=== PATIENT | male | born 1980 | race Caucasian/White ===

== ENCOUNTER 2018-11-08 01:00 | Inpatient (IN) | payer MEDICAID ==
[2018-11-08] MEDS ORDERED: SOD CHLORIDE 0.9% 1,000 ML IV (01:30)
[2018-11-08 01:53] LABS: ADD MAN DIFF? NO
[2018-11-08 01:56] LABS: WHITE BLOOD COUNT 3.3 10^3/ul (4.8-10.8)
[2018-11-08 01:56] LABS: BASOPHILS % 0.3 % (0.0-2.0); HEMATOCRIT 45.2 % (42.0-52.0); HEMOGLOBIN 14.9 g/dl (14.0-18.0); LYMPHOCYTES # 0.7 10^3/ul (0.8-2.9); LYMPHOCYTES % 22.7 % (15.0-51.0); MEAN CORPUSCULAR HEMOGLOBIN 28.4 pg (29.0-33.0); MEAN CORPUSCULAR VOLUME 86.3 fl (82.0-101.0); MEAN PLATELET VOLUME 10.8 fl (7.4-10.4); MONOCYTE # 0.3 10^3/ul (0.3-0.9); MONOCYTES % 10.4 % (0.0-11.0); NEUTROPHIL # 2.2 10^3/ul (1.6-7.5); PLATELET COUNT 190 10^3/UL (140-415); RED BLOOD COUNT 5.24 10^6/ul (4.70-6.10); RED CELL DISTRIBUTION WIDTH 13.7 % (11.5-14.5)
[2018-11-08] MEDS: SODIUM CHLORIDE 0.9% 1L BAG IV* (02:00)
[2018-11-08] MEDS: PIPER-TAZO 3.375 GM IV (PMX) 100 ML IVPB (02:07)
[2018-11-08] MEDS: ACETAMINOPHEN 325 MG TAB PO ×2 (02:07→19:34)
[2018-11-08 02:13] LABS: ALANINE AMINOTRANSFERASE 26 IU/L (13-69); ALBUMIN 4.2 g/dl (3.3-4.9); ALBUMIN/GLOBULIN RATIO 1.23; ALKALINE PHOSPHATASE 56 IU/L (42-121); ANION GAP 9 (5-13); ASPARTATE AMINO TRANSFERASE 37 IU/L (15-46); BILIRUBIN,INDIRECT 0.2 mg/dl (0-1.1); BILIRUBIN,TOTAL 0.2 mg/dl (0.2-1.3); BLOOD UREA NITROGEN 14 mg/dl (7-20); CALCIUM 8.8 mg/dl (8.4-10.2); CARBON DIOXIDE 29 mmol/L (21-31); CHLORIDE 98 mmol/L (97-110); CREATININE 0.87 mg/dl (0.61-1.24); Estimated GFR > 60 mL/min (>60); GLUCOSE 100 mg/dl (70-220); POTASSIUM 3.8 mmol/L (3.5-5.1); SODIUM 136 mmol/L (135-144); TOTAL PROTEIN 7.6 g/dl (6.1-8.1)
[2018-11-08 02:15] LABS: PROTIME 12.3 Sec (11.9-14.9)
[2018-11-08 02:16] LABS: PARTIAL THROMBOPLASTIN TIME 34.6 Sec (23.0-35.0)
[2018-11-08 02:19] LABS: CREATINE KINASE 209 IU/L (23-200)
[2018-11-08 02:24] LABS: TROPONIN-I < 0.012 ng/ml (0.000-0.120)
[2018-11-08 02:33] LABS: LACTIC ACID 2.3 mmol/L (0.5-2.0)
[2018-11-08] MEDS: VANCOMYCIN 1 GM (PMX) 250 ML IVPB (02:57)
[2018-11-08] MEDS: SOD CHLORIDE 0.9% IV (03:02)
[2018-11-08] MEDS ORDERED: ONDANSETRON 4 MG INJ IV (04:00)
[2018-11-08] MEDS ORDERED: ALBUTEROL/IPRATROPIUM (NEB) 3 ML AMP HHN (04:00)
[2018-11-08] MEDS ORDERED: NACL 0.9% 3 ML SYG IV (04:00)
[2018-11-08 04:46] LABS: ADD UMIC NO; UR ASCORBIC ACID NEGATIVE (NEGATIVE); UR BILIRUBIN (Dip) NEGATIVE (NEGATIVE); UR BLOOD (Dip) NEGATIVE (NEGATIVE); UR CLARITY CLEAR (CLEAR); UR COLOR STRAW (YELLOW); UR GLUCOSE (Dip) NEGATIVE (NEGATIVE); UR KETONES (Dip) NEGATIVE (NEGATIVE); UR LEUKOCYTE ESTERASE (Dip) NEGATIVE Leu/ul (NEGATIVE); UR NITRITE (Dip) NEGATIVE (NEGATIVE); UR SPECIFIC GRAVITY (Dip) 1.009 (1.003-1.030); UR TOTAL PROTEIN (Dip) NEGATIVE (NEGATIVE); UR UROBILINOGEN (Dip) NEGATIVE (NEGATIVE)
[2018-11-08] MEDS: SOD CHLORIDE 0.9% 1,000 ML IV ×3 (05:00→16:57)
[2018-11-08] MEDS: IBUPROFEN 600 MG TAB PO (05:37)
[2018-11-08 07:32] LABS: LACTIC ACID 0.9 mmol/L (0.5-2.0)
[2018-11-08] MEDS ORDERED: AZITHROMYCIN 500MG/NS (PMX) 250 ML IVPB (09:00)
[2018-11-08] MEDS: CEFTRIAXONE 1 GM/50 ML (PMX) 50 ML IVPB ×2 (10:28→21:13)
[2018-11-08] MEDS: AZITHROMYCIN 500MG/NS (PMX) 250 ML IVPB (16:52)
[2018-11-08] MEDS: LORAZEPAM 0.5 MG TAB PO (21:13)
[2018-11-09] MEDS: HYDROCODONE/APAP (5/325) TAB PO (00:43)
[2018-11-09] MEDS: LORAZEPAM 0.5 MG TAB PO ×2 (04:02→09:00)
[2018-11-09 06:24] LABS: ADD MAN DIFF? NO
[2018-11-09 06:33] LABS: ABNORMAL IP MESSAGE 1; BASOPHILS % 0.5 % (0.0-2.0); HEMATOCRIT 44.6 % (42.0-52.0); HEMOGLOBIN 14.5 g/dl (14.0-18.0); LYMPHOCYTES # 0.9 10^3/ul (0.8-2.9); LYMPHOCYTES % 43.5 % (15.0-51.0); MEAN CORPUSCULAR HEMOGLOBIN 28.2 pg (29.0-33.0); MEAN CORPUSCULAR HGB CONC 32.5 g/dl (32.0-37.0); MEAN CORPUSCULAR VOLUME 86.6 fl (82.0-101.0); MEAN PLATELET VOLUME 11.2 fl (7.4-10.4); MONOCYTE # 0.3 10^3/ul (0.3-0.9); MONOCYTES % 16.5 % (0.0-11.0); NEUTROPHIL # 0.8 10^3/ul (1.6-7.5); NEUTROPHILS % 39.5 % (39.0-77.0); PLATELET COUNT 156 10^3/UL (140-415); POSITIVE DIFF @See below; RED BLOOD COUNT 5.15 10^6/ul (4.70-6.10); RED CELL DISTRIBUTION WIDTH 13.9 % (11.5-14.5)
[2018-11-09 06:44] LABS: HEMOGLOBIN A1C 5.3 % (0-5.9)
[2018-11-09 07:27] LABS: CARBON DIOXIDE 27 mmol/L (21-31); CHLORIDE 103 mmol/L (97-110); POTASSIUM 4.1 mmol/L (3.5-5.1); SODIUM 139 mmol/L (135-144)
[2018-11-09 07:28] LABS: ALANINE AMINOTRANSFERASE 19 IU/L (13-69); ALBUMIN 3.7 g/dl (3.3-4.9); ALBUMIN/GLOBULIN RATIO 1.15; ALKALINE PHOSPHATASE 50 IU/L (42-121); ANION GAP 9 (5-13); ASPARTATE AMINO TRANSFERASE 35 IU/L (15-46); BILIRUBIN,INDIRECT 0.1 mg/dl (0-1.1); BILIRUBIN,TOTAL 0.1 mg/dl (0.2-1.3); BLOOD UREA NITROGEN 10 mg/dl (7-20); CALCIUM 8.4 mg/dl (8.4-10.2); CHOL/HDL RATIO 3.9 RATIO; CHOLESTEROL 107 mg/dl (100-200); CREATININE 0.71 mg/dl (0.61-1.24); Estimated GFR > 60 mL/min (>60); GLUCOSE 78 mg/dl (70-220); HDL CHOLESTEROL 27 mg/dl (27-67); LDL CHOLESTEROL,CALCULATED 68 mg/dl; TOTAL PROTEIN 6.9 g/dl (6.1-8.1); TRIGLYCERIDES 60 mg/dl (0-149)
[2018-11-09] MEDS: CEFTRIAXONE 1 GM/50 ML (PMX) 50 ML IVPB (09:00)
[2018-11-09] MEDS: ACETAMINOPHEN 325 MG TAB PO (09:00)
[2018-11-09] MEDS: SOD CHLORIDE 0.9% 1,000 ML IV ×2 (09:34→15:04)
[2018-11-09] MEDS ORDERED: ACETAMINOPHEN 325 MG TAB PO (12:30)
[2018-11-09] MEDS ORDERED: GUAIFENESIN/DM 5ML CUP PO (12:30)
[2018-11-09] MEDS: AZITHROMYCIN 500MG/NS (PMX) 250 ML IVPB (17:00)
[2018-11-10] MEDS ORDERED: ENOXAPARIN 40 MG/0.4 ML SYG SC (09:00)
== END 2018-11-09 18:59 | disposition home or self-care (01) | DRG 864 ==
LOC: E/R 01:00 → TEL 03:04
PROVIDERS: Internal Medicine
DX: R50.9 Fever, unspecified (principal); F15.93 Other stimulant use, unspecified with withdrawal; B34.9 Viral infection, unspecified; F17.210 Nicotine dependence, cigarettes, uncomplicated
CPT/HCPCS: 36415; 71045; 74176; 80053; 80061; 81003; 82550; 83036; 83605; 84443; 84484; 85025; 85610; 85730; 87040; 87086; 87400; 93005; 96365; 96375; 99291-25

== ENCOUNTER 2018-11-11 18:23 | Emergency (ER) | payer MEDICAID ==
[2018-11-11] MEDS: SOD CHLORIDE 0.9% 1,000 ML IV (19:55)
[2018-11-11 20:12] LABS: ADD MAN DIFF? NO
[2018-11-11 20:14] LABS: WHITE BLOOD COUNT 3.7 10^3/ul (4.8-10.8)
[2018-11-11 20:14] LABS: BASOPHILS % 0.5 % (0.0-2.0); EOSINOPHILS # 0.1 10^3/ul (0.0-0.5); EOSINOPHILS % 1.6 % (0.0-7.0); HEMATOCRIT 46.3 % (42.0-52.0); HEMOGLOBIN 15.3 g/dl (14.0-18.0); LYMPHOCYTES # 1.1 10^3/ul (0.8-2.9); LYMPHOCYTES % 29.9 % (15.0-51.0); MEAN CORPUSCULAR HEMOGLOBIN 28.4 pg (29.0-33.0); MEAN CORPUSCULAR VOLUME 86.1 fl (82.0-101.0); MONOCYTE # 0.5 10^3/ul (0.3-0.9); MONOCYTES % 14.2 % (0.0-11.0); NEUTROPHILS % 53.5 % (39.0-77.0); PLATELET COUNT 229 10^3/UL (140-415); RED BLOOD COUNT 5.38 10^6/ul (4.70-6.10); RED CELL DISTRIBUTION WIDTH 13.7 % (11.5-14.5)
[2018-11-11 20:24] LABS: ADD UMIC NO; UR ASCORBIC ACID NEGATIVE (NEGATIVE); UR BILIRUBIN (Dip) NEGATIVE (NEGATIVE); UR BLOOD (Dip) NEGATIVE (NEGATIVE); UR CLARITY CLEAR (CLEAR); UR COLOR YELLOW (YELLOW); UR GLUCOSE (Dip) NEGATIVE (NEGATIVE); UR KETONES (Dip) NEGATIVE (NEGATIVE); UR LEUKOCYTE ESTERASE (Dip) NEGATIVE Leu/ul (NEGATIVE); UR NITRITE (Dip) NEGATIVE (NEGATIVE); UR SPECIFIC GRAVITY (Dip) 1.015 (1.003-1.030); UR TOTAL PROTEIN (Dip) NEGATIVE (NEGATIVE); UR UROBILINOGEN (Dip) NEGATIVE (NEGATIVE)
[2018-11-11 20:54] LABS: ALANINE AMINOTRANSFERASE 25 IU/L (13-69); ALBUMIN 4.2 g/dl (3.3-4.9); ALBUMIN/GLOBULIN RATIO 1.07; ALKALINE PHOSPHATASE 61 IU/L (42-121); ANION GAP 11 (5-13); ASPARTATE AMINO TRANSFERASE 44 IU/L (15-46); BILIRUBIN,INDIRECT 0.2 mg/dl (0-1.1); BILIRUBIN,TOTAL 0.2 mg/dl (0.2-1.3); BLOOD UREA NITROGEN 17 mg/dl (7-20); CALCIUM 9.1 mg/dl (8.4-10.2); CARBON DIOXIDE 32 mmol/L (21-31); CHLORIDE 97 mmol/L (97-110); Estimated GFR > 60 mL/min (>60); GLUCOSE 93 mg/dl (70-220); LIPASE 114 U/L (23-300); SODIUM 140 mmol/L (135-144); TOTAL PROTEIN 8.1 g/dl (6.1-8.1)
[2018-11-11 20:54] LABS: MONOTEST Negative (NEG)
[2018-11-11 21:01] LABS: TROPONIN-I < 0.012 ng/ml (0.000-0.120)
[2018-11-11 21:34] LABS: HIV 1&2 ANTIBODY NEGATIVE (NEGATIVE)
== END 2018-11-11 22:15 | disposition home or self-care (01) ==
LOC: FTE 18:23
DX: B34.9 Viral infection, unspecified (principal); R07.9 Chest pain, unspecified; R53.1 Weakness; F17.210 Nicotine dependence, cigarettes, uncomplicated
CPT/HCPCS: 36415; 80053; 81003; 83605; 83690; 84484; 85025; 86308; 86703; 93005; 99284-25

== ENCOUNTER 2018-12-05 20:33 | Emergency (ER) | payer MEDICAID ==
[2018-12-06] MEDS: ONDANSETRON (ODT) 4 MG TAB ODT (00:53)
[2018-12-06] MEDS: FAMOTIDINE 20 MG TAB PO (00:55)
[2018-12-06] MEDS: ASPIRIN 325 MG TAB PO (00:55)
[2018-12-06] MEDS: LORAZEPAM 1 MG TAB PO (00:55)
== END 2018-12-06 01:26 | disposition home or self-care (01) ==
LOC: FTE 12-06 01:26
DX: F41.9 Anxiety disorder, unspecified (principal); Z87.891 Personal history of nicotine dependence
CPT/HCPCS: 93005; 99283-25

== ENCOUNTER 2019-01-28 06:07 | Emergency (ER) | payer MEDICAID ==
[2019-01-28] MEDS: LORAZEPAM 1 MG TAB PO (07:13)
== END 2019-01-28 09:15 | disposition home or self-care (01) ==
LOC: E/R 06:07
DX: F41.9 Anxiety disorder, unspecified (principal); F17.210 Nicotine dependence, cigarettes, uncomplicated; R40.2142 Coma scale, eyes open, spontaneous, at arrival to emergency department; R40.2362 Coma scale, best motor response, obeys commands, at arrival to emergency department; R40.2252 Coma scale, best verbal response, oriented, at arrival to emergency department
CPT/HCPCS: 99283; Z7502

== ENCOUNTER 2019-02-01 00:14 | Emergency (ER) | payer MEDICAID ==
[2019-02-01] MEDS: DIPHENHYDRAMINE 50 MG INJ IM (00:31)
[2019-02-01] MEDS: LORAZEPAM 2 MG INJ IM (00:31)
[2019-02-01] MEDS: HALOPERIDOL 5 MG INJ IM (00:31)
[2019-02-01] MEDS ORDERED: HALOPERIDOL 5 MG INJ (00:34)
[2019-02-01] MEDS ORDERED: LORAZEPAM 2 MG INJ (00:35)
[2019-02-01 00:59] LABS: ADD MAN DIFF? NO
[2019-02-01 01:00] LABS: BASOPHILS % 0.3 % (0.0-2.0); EOSINOPHILS # 0.1 10^3/ul (0.0-0.5); EOSINOPHILS % 0.6 % (0.0-7.0); HEMATOCRIT 41.5 % (42.0-52.0); HEMOGLOBIN 13.9 g/dl (14.0-18.0); LYMPHOCYTES # 1.4 10^3/ul (0.8-2.9); LYMPHOCYTES % 12.8 % (15.0-51.0); MEAN CORPUSCULAR HEMOGLOBIN 28.7 pg (29.0-33.0); MEAN CORPUSCULAR HGB CONC 33.5 g/dl (32.0-37.0); MEAN CORPUSCULAR VOLUME 85.6 fl (82.0-101.0); MEAN PLATELET VOLUME 10.2 fl (7.4-10.4); MONOCYTE # 0.9 10^3/ul (0.3-0.9); MONOCYTES % 8.5 % (0.0-11.0); NEUTROPHIL # 8.2 10^3/ul (1.6-7.5); NEUTROPHILS % 77.4 % (39.0-77.0); PLATELET COUNT 360 10^3/UL (140-415); RED BLOOD COUNT 4.85 10^6/ul (4.70-6.10); RED CELL DISTRIBUTION WIDTH 13.2 % (11.5-14.5)
[2019-02-01 01:00] LABS: WHITE BLOOD COUNT 10.5 10^3/ul (4.8-10.8)
[2019-02-01 01:16] LABS: BARBITURATES Negative (NEGATIVE); BENZODIAZEPINES Negative (NEGATIVE); CANNABINOIDS Negative (NEGATIVE); COCAINE Negative (NEGATIVE); OPIATES Negative (NEGATIVE)
[2019-02-01 01:20] LABS: ALANINE AMINOTRANSFERASE 30 IU/L (13-69); ALBUMIN 4.5 g/dl (3.3-4.9); ALBUMIN/GLOBULIN RATIO 1.32; ALKALINE PHOSPHATASE 52 IU/L (42-121); ANION GAP 11 (5-13); ASPARTATE AMINO TRANSFERASE 37 IU/L (15-46); BILIRUBIN,INDIRECT 0.5 mg/dl (0-1.1); BILIRUBIN,TOTAL 0.5 mg/dl (0.2-1.3); BLOOD UREA NITROGEN 15 mg/dl (7-20); CALCIUM 10.1 mg/dl (8.4-10.2); CARBON DIOXIDE 27 mmol/L (21-31); CHLORIDE 104 mmol/L (97-110); CREATININE 1.13 mg/dl (0.61-1.24); Estimated GFR > 60 mL/min (>60); GLUCOSE 103 mg/dl (70-220); POTASSIUM 3.8 mmol/L (3.5-5.1); SODIUM 142 mmol/L (135-144); TOTAL PROTEIN 7.9 g/dl (6.1-8.1)
[2019-02-01 01:25] LABS: ACETAMINOPHEN < 10.0 ug/ml (10.0-30.0); ETHANOL < 10.0 mg/dl (0-0); SALICYLATE < 1.0 mg/dl (5.0-30.0)
[2019-02-01 01:26] LABS: AMPHETAMINE/METHAMPHETAMINE POSITIVE (NEGATIVE)
[2019-02-01 02:21] LABS: ADD UMIC NO; UR ASCORBIC ACID 20 mg/dL (NEGATIVE); UR BILIRUBIN (Dip) NEGATIVE (NEGATIVE); UR BLOOD (Dip) NEGATIVE (NEGATIVE); UR CLARITY CLEAR (CLEAR); UR COLOR STRAW (YELLOW); UR GLUCOSE (Dip) NEGATIVE (NEGATIVE); UR KETONES (Dip) NEGATIVE (NEGATIVE); UR LEUKOCYTE ESTERASE (Dip) NEGATIVE Leu/ul (NEGATIVE); UR NITRITE (Dip) NEGATIVE (NEGATIVE); UR SPECIFIC GRAVITY (Dip) 1.011 (1.003-1.030); UR TOTAL PROTEIN (Dip) NEGATIVE (NEGATIVE); UR UROBILINOGEN (Dip) NEGATIVE (NEGATIVE)
== END 2019-02-01 12:18 | disposition home or self-care (01) ==
LOC: E/R 00:14
DX: F15.10 Other stimulant abuse, uncomplicated (principal); R20.2 Paresthesia of skin; D64.9 Anemia, unspecified; F17.210 Nicotine dependence, cigarettes, uncomplicated; F23 Brief psychotic disorder
CPT/HCPCS: 36415; 80053; 80307; 81003; 85025; 96372; 99284-25

== ENCOUNTER 2019-02-08 13:03 | Emergency (ER) | payer MEDICAID ==
[2019-02-08 14:11] LABS: ADD MAN DIFF? NO
[2019-02-08] MEDS: SOD CHLORIDE 0.9% 1,000 ML IV (14:11)
[2019-02-08 14:14] LABS: WHITE BLOOD COUNT 6.1 10^3/ul (4.8-10.8)
[2019-02-08 14:14] LABS: BASOPHILS % 0.3 % (0.0-2.0); EOSINOPHILS # 0.1 10^3/ul (0.0-0.5); EOSINOPHILS % 1.5 % (0.0-7.0); HEMATOCRIT 38.8 % (42.0-52.0); HEMOGLOBIN 12.8 g/dl (14.0-18.0); LYMPHOCYTES % 16.7 % (15.0-51.0); MEAN CORPUSCULAR HEMOGLOBIN 28.1 pg (29.0-33.0); MEAN CORPUSCULAR VOLUME 85.3 fl (82.0-101.0); MEAN PLATELET VOLUME 10.2 fl (7.4-10.4); MONOCYTE # 0.5 10^3/ul (0.3-0.9); MONOCYTES % 8.7 % (0.0-11.0); NEUTROPHIL # 4.4 10^3/ul (1.6-7.5); NEUTROPHILS % 72.5 % (39.0-77.0); PLATELET COUNT 284 10^3/UL (140-415); RED BLOOD COUNT 4.55 10^6/ul (4.70-6.10); RED CELL DISTRIBUTION WIDTH 13.2 % (11.5-14.5)
[2019-02-08 14:21] LABS: ADD UMIC YES; UR ASCORBIC ACID NEGATIVE (NEGATIVE); UR BILIRUBIN (Dip) NEGATIVE (NEGATIVE); UR BLOOD (Dip) 1+ mg/dL (NEGATIVE); UR CLARITY CLEAR (CLEAR); UR COLOR COLORLESS (YELLOW); UR GLUCOSE (Dip) NEGATIVE (NEGATIVE); UR KETONES (Dip) NEGATIVE (NEGATIVE); UR LEUKOCYTE ESTERASE (Dip) NEGATIVE Leu/ul (NEGATIVE); UR NITRITE (Dip) NEGATIVE (NEGATIVE); UR RBC 0 /HPF (0-5); UR SPECIFIC GRAVITY (Dip) 1.004 (1.003-1.030); UR TOTAL PROTEIN (Dip) NEGATIVE (NEGATIVE); UR UROBILINOGEN (Dip) NEGATIVE (NEGATIVE); UR WBC 0 /HPF (0-5)
[2019-02-08 14:31] LABS: ALANINE AMINOTRANSFERASE 32 IU/L (13-69); ALBUMIN/GLOBULIN RATIO 1.29; ALKALINE PHOSPHATASE 49 IU/L (42-121); ANION GAP 7 (5-13); ASPARTATE AMINO TRANSFERASE 36 IU/L (15-46); BILIRUBIN,INDIRECT 0.5 mg/dl (0-1.1); BILIRUBIN,TOTAL 0.5 mg/dl (0.2-1.3); BLOOD UREA NITROGEN 17 mg/dl (7-20); CALCIUM 9.8 mg/dl (8.4-10.2); CARBON DIOXIDE 27 mmol/L (21-31); CHLORIDE 104 mmol/L (97-110); CREATININE 0.94 mg/dl (0.61-1.24); Estimated GFR > 60 mL/min (>60); GLUCOSE 93 mg/dl (70-220); SODIUM 138 mmol/L (135-144); TOTAL PROTEIN 7.1 g/dl (6.1-8.1)
[2019-02-08 14:44] LABS: BARBITURATES Negative (NEGATIVE); BENZODIAZEPINES Negative (NEGATIVE); CANNABINOIDS Negative (NEGATIVE); COCAINE Negative (NEGATIVE); OPIATES Negative (NEGATIVE)
[2019-02-08 14:47] LABS: ETHANOL < 10.0 mg/dl (0-0); SALICYLATE < 1.0 mg/dl (5.0-30.0)
[2019-02-08 14:55] LABS: AMPHETAMINE/METHAMPHETAMINE POSITIVE (NEGATIVE)
[2019-02-08] MEDS: MAGNESIUM CITRATE 300 ML BTL PO (15:32)
== END 2019-02-08 16:11 | disposition home or self-care (01) ==
LOC: E/R 13:03
DX: F15.10 Other stimulant abuse, uncomplicated (principal); R07.9 Chest pain, unspecified; Z87.891 Personal history of nicotine dependence
CPT/HCPCS: 74018; 80053; 80307; 81001; 85025; 93005; 99285-25